=== PATIENT | female | born 1955 | race African-American/Black ===

== ENCOUNTER 2018-09-24 10:42 | Day surgery (SDC) | payer OTHER, SELFPAY ==
--- NOTE | 2018-09-24 | PATH_ITS ---
[facility] Accession Number: [id number] . 01 Material submitted: . PART A: DUODENUM PART B: ANTRUM PART C: GE JUNCTION . 02 Diagnosis: A. Duodenum, Biopsy: Duodenal mucosa with no diagnostic abnormality. Negative for active inflammation, features of sprue, dysplasia and malignancy. . B. Stomach, Antrum, Biopsy: Antral mucosa with no diagnostic abnormality. Negative for intestinal metaplasia. No evidence of Helicobacter on H/E stain. Negative for dysplasia and malignancy. . C. Gastroesophageal Junction, Biopsy: Columnar mucosa with no diagnostic abnormality. Negative for intestinal metaplasia. Negative for dysplasia and malignancy. [facility]/09/25/2018 . 02 Electronically signed: . Shelia Zepeda MD, Pathologist NPI- [id number] . 01 Gross description: . Received three formalin-filled containers each labeled with the patient's name. . A. In a container labeled duodenum, the specimen consists of a 0.2 cm portion of tissue. Entirely submitted in cassette A. B. In a container labeled antrum are two 0.1 to 0.3 cm portions of tissue. Entirely submitted in cassette B. C. In a container labeled GE junction, the specimen consists of two 0.1 to 0.2 cm portions of tissue. Entirely submitted in cassette C. [place] [id number] . 02 Pathologist provided ICD-10: R10.13 . 02 CPT . 063175, [id number], [id number] Specimen Comment: A duplicate report has been generated due to demographic updates. Performed at: 01 [facility] [address] [place] [address], [place], [place] [id number] MD Krystian Browne MD Phone: [phone] Performed at: 02 [facility] [address] [place] [id number] MD Shelia Zepeda MD Phone: [phone]
[2018-09-24] MEDS: SODIUM CHLORIDE 0.9% 1,000 ML 200 ML IV (11:10)
[2018-09-24 11:14] VITALS: BP 117/61; PULSE 61; RESP 16; TEMP 37; O2SAT 99; BMI 36.8
[2018-09-24] MEDS: ONDANSETRON 4 MG/2 ML INJ IV (11:58)
--- NOTE | 2018-09-24 12:04 | PM.PREOP ---
Pre-operative Note Interval Note Pre-op Check: Yes History & Physical Reviewed by Physician Changes: No ASA Class (for procedural sedation): II
[2018-09-24] MEDS: TETRACAINE/BENZOCAINE/BUTAMBEN (CETACAINE) BOTTLE 1 SPRAY TOP (12:07)
[2018-09-24] MEDS: LIDOCAINE 4% SOLN 50 ML 20 ML TOP (12:11)
[2018-09-24] MEDS: MIDAZOLAM 5 MG/5 ML VIAL IV (12:12)
[2018-09-24] MEDS: fentaNYL 250 MCG/5 ML INJ IV (12:12)
[2018-09-24 12:43] VITALS: BP 129/81; PULSE 57; RESP 10; TEMP 36.1; O2SAT 94
--- NOTE | 2018-09-24 12:44 | PM.OP.1 ---
Operative Date/Time/Diagnoses Date of procedure: 09/24/18 Time of procedure: 12:44 Pre-op diagnosis: Gastroesophageal reflux disease Screening Post-op diagnosis: same Procedure & Clinicians Procedure: With biopsies and colonoscopy to the cecum Same procedure as scheduled: Yes Indications: Gastroesophageal reflux disease and screening study More than 5 years since her last colonoscopy Surgeon: Radha Mittal Click Yes if Unassisted: Yes Anesthesia Type: Sedation (Versed 6 mg; fentanyl 250 mcg) Operative Notes Findings: 1. Normal duodenum 2. Normal appearing gastric antrum with a functioning pylorus. No overt evidence of gastritis 3. GE junction at 39 cm from the incisors with a 1 cm sliding hiatal hernia 4. Very regular appearing Z-line without any obvious evidence of Joe's changes or esophagitis 5. Normal posterior oropharynx and vocal cords 6. Excellent prep 7. No polyps or mass lesions 8. No AV malformations 9. Minimal diverticulosis with just a few small pockets limited to the sigmoid region 10. Grade 1 internal hemorrhoids with a few residual external skin tags without evidence of inflammation or stigmata of recent bleeding Specimen(s): other (Cold forceps mucosal biopsies of 1. Duodenum, 2. Antrum, 3. GE junction) Estimated Blood Loss (mL): 1 Procedure in detail: After obtaining informed consent, the patient was brought to the GI suite and placed in the left lateral decubitus position on the examination table. After placement of appropriate monitors, the patient was given incremental doses of Versed and Fentanyl until an appropriate level of sedation was achieved. A time out was held per SCOAP protocol. We began with EGD. A bite block was gently placed between the patient's teeth. The endoscope was lubricated and then passed into the patient's posterior oropharynx. The esophagus was cannulated under direct vision and the scope was passed to the second portion of the duodenum without difficulty. The scope was then withdrawn with careful examination of all areas of the upper GI tract and mucosa. In the stomach, the instrument was retroflexed and the GE junction examined. The scope was straightened and the procedure continued with examination of the remainder of the upper GI tract. Findings are noted above. Air was aspirated from the stomach and the endoscope gently removed from the esophagus. The examination table was turned and we continued with the colonoscopy. A digital rectal examination was performed and did not reveal any masses or obstructing lesions. The colonoscope was gently passed into the patient's anus and the entire colon navigated to the level of the cecum with minimal difficulty. Once in the cecum, the scope was withdrawn being sure to go before and beyond all mucosal folds and prominences and get an excellent examination. The findings are noted above. At the level of the rectal vault, the scope was retroflexed and the internal anal canal was examined. The scope was straightened and air aspirated from the colon. The instrument was removed from the patient's body and the procedure was concluded. The patient was allowed to awaken from sedation without difficulty and taken to the post-anesthesia care unit in good condition. Total sedation time 27 min Total withdrawal time for colonoscopy 9 min 52 sec Complications: none Condition: stable Disposition: PACU Plan for aftercare: 1. Discharge to home 2. We will contact you with pathology results and any additional recommendations.
[2018-09-24 12:48] VITALS: BP 115/79; PULSE 60; RESP 16; O2SAT 96
[2018-09-24 12:57] VITALS: BP 116/73; PULSE 58; RESP 12; O2SAT 95
[2018-09-24 13:05] VITALS: BP 134/77; PULSE 62; RESP 16; TEMP 36.2; O2SAT 96
--- NOTE | 2018-09-24 13:13 | SUR.PHASEII ---
c/o mild nausea, queaze ease and yuni altaf provided.
--- NOTE | 2018-09-24 13:16 | SUR.PHASEII ---
states starting to feel better.
== END 2018-09-24 13:33 | disposition home or self-care (01) ==
PROVIDERS: PCP Family Medicine; Visit Provider Surgery
PROC: 0DJ08ZZ Inspection of Upper Intestinal Tract, Via Natural or Artificial Opening Endoscopic (ICD-10-PCS; CPT 43235; principal; 2018-09-24 11:45)
PROC: 0DJD8ZZ Inspection of Lower Intestinal Tract, Via Natural or Artificial Opening Endoscopic (ICD-10-PCS; CPT 45378; 2018-09-24 11:45)
DX: Z12.11 Encounter for screening for malignant neoplasm of colon (principal); K21.9 Gastro-esophageal reflux disease without esophagitis; K44.9 Diaphragmatic hernia without obstruction or gangrene; K57.30 Diverticulosis of large intestine without perforation or abscess without bleeding; K64.8 Other hemorrhoids; K64.0 First degree hemorrhoids; I10 Essential (primary) hypertension; E78.5 Hyperlipidemia, unspecified
CPT/HCPCS: 43239; 45378; 99152; 99153; J2250; J2405; J3010

== ENCOUNTER → 2018-10-23 13:55 | Outpatient (CLI) | payer OTHER, SELFPAY ==
--- NOTE | 2018-10-23 13:56 | DI.CT.S_ITS ---
PROCEDURE: CT ABDOMEN PELVIS W CON INDICATIONS: Abdominal pain, epigastric pain TECHNIQUE: After the administration of oral and intravenous contrast, 5 mm thick sections acquired from the diaphragms to the symphysis. 5 mm thick coronal and sagittal reformats were performed. For radiation dose reduction, the following was used: automated exposure control, adjustment of mA and/or kV according to patient size. COMPARISON: None. FINDINGS: Image quality: Excellent. ABDOMEN: Lung bases: Mild bibasilar dependent atelectasis are noted posteriorly. No pleural effusion or pneumothorax clear. Heart size is normal. Solid organs: Liver is normal in size and enhancement. Hepatic steatosis is seen. 3 mm hypodensity involving inferior right hepatic lobe is seen and is too small to characterize. Gallbladder is within normal limits. Biliary system is non-dilated. Pancreas enhances normally. Spleen is normal in size and enhancement. No adrenal nodules. Kidneys are normal in size and enhancement, without hydronephrosis. Peritoneum and bowel: There is a small hiatal hernia. Oral contrast is seen distending gastric lumen with distal gastric wall thickening and wall thickening involving most proximal portion of duodenum suggestive of gastroduodenitis. Rest of small bowel and colon show normal wall thickness. No mesenteric fat stranding. Mild fecal stasis throughout the colon is seen. No free fluid or air. Nodes and vessels: No retroperitoneal or mesenteric adenopathy. Aorta and inferior vena cava are normal in caliber. Miscellaneous: No ventral hernias. PELVIS: Genitourinary: Bladder wall thickness is normal. Miscellaneous: No inguinal hernias or adenopathy. Bones: No suspicious bony lesions. No vertebral body compression fractures. IMPRESSION: 1. Distal gastric wall thickening and proximal duodenal wall thickening suggestive of gastroduodenitis. No evidence of bowel obstruction. Mild constipation. No free fluid or free air. 2. Hepatic steatosis. 3 mm hypodensity in inferior right hepatic lobe and is too small to characterize. 3. No renal stone hydronephrosis. Dictated by: Darshan Shields M.D. on 10/23/2018 at 16:36 Approved by: Darshan Shields M.D. on 10/23/2018 at 16:40
[2018-10-23 14:24] LABS: BUN Creatinine Ratio 17.5 (6-22); Blood Urea Nitrogen 14 mg/dL (7-17); Estimated Glomerular Filt Rate > 60.0 mL/min (>60)
== END ==
PROVIDERS: PCP Family Medicine; Visit Provider Surgery
DX: R10.13 Epigastric pain (principal); K59.00 Constipation, unspecified; K76.0 Fatty (change of) liver, not elsewhere classified
CPT/HCPCS: 36415; 74177; 82565; 84520; Q9967